=== PATIENT | female | born 1980 | race Two or more races ===

== ENCOUNTER 2022-07-13 16:16 | Emergency (ER) | payer OTHER ==
--- NOTE | 2022-07-13 17:00 | NUR ---
Multiple calls ------No response. Eloped
--- NOTE | 2022-07-13 17:25 | NUR ---
Multiple calls ------No response. Eloped
== END 2022-07-13 17:27 | disposition home or self-care (01) ==
LOC: ER 16:24
DX: Z53.21 Procedure and treatment not carried out due to patient leaving prior to being seen by health care provider (principal)

== ENCOUNTER 2022-08-28 11:12 | Emergency (ER) | payer OTHER ==
[~2022-08-28] VITALS: Ht 165.1 cm; Wt 75.3 kg
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
--- NOTE | 2022-08-28 11:45 | NUR ---
AT BEDSIDE FOR EVAL
[2022-08-28] MEDS ORDERED: DIAZ5TAB PO (11:46)
--- NOTE | 2022-08-28 12:00 | NUR ---
Patient discharged to home in stable condition. Written and verbal after care instructions given. Patient verbalizes understanding of instruction.
[2022-08-28 12:01] VITALS: BP 125/80
== END 2022-08-28 12:00 | disposition home or self-care (01) ==
LOC: ER 11:20
DX: F41.9 Anxiety disorder, unspecified (principal); Z60.2 Problems related to living alone; Z79.899 Other long term (current) drug therapy

== ENCOUNTER 2023-09-25 17:01 | Emergency (ER) | payer OTHER ==
[~2023-09-25] VITALS: Ht 165.1 cm; Wt 82.6 kg
[~2023-09-25 17:01] MED LIST: DIAZ5TAB PO
[2023-09-25 18:02] VITALS: BP 131/76; TEMP 98.3
[2023-09-25 19:49] VITALS: O2SAT 99
== END 2023-09-25 19:50 | disposition home or self-care (01) ==
LOC: ER 17:12
DX: F41.9 Anxiety disorder, unspecified (principal); Z76.0 Encounter for issue of repeat prescription; Z60.2 Problems related to living alone
CPT/HCPCS: 99281; A4624